=== PATIENT | female | born 1980 | race African-American/Black ===

== ENCOUNTER 2016-06-27 05:30 | Emergency (ER) | payer MEDICAID ==
[~2016-06-27] VITALS: Ht 157.5 cm; Wt 66.0 kg
[2016-06-27] MEDS ORDERED: ACETAMINOPHEN 325MG TABLET PO STA (06:22)
[2016-06-27 06:35] LABS: CLARITY URINE CLEAR (CLEAR); COLOR URINE YELLOW (YELLOW); GLUCOSE URINE NEGATIVE (NEGATIVE); KETONES URINE NEGATIVE (NEGATIVE); LEUKOCYTE ESTERASE URINE NEGATIVE (NEGATIVE); NITRITE URINE NEGATIVE (NEGATIVE); OCCULT BLOOD URINE 2+ (NEGATIVE); PH URINE 7.5 (4.5-8.0); PROTEIN URINE NEGATIVE (NEGATIVE); SPECIFIC GRAVITY URINE 1.006 (1.005-1.030); UROBILINOGEN URINE 0.2 E.U./dL (0.2-1.0)
[2016-06-27 06:36] LABS: BACTERIA URINE NONE SEEN; CALCIUM PHOSPHATE CRYSTALS UR NONE SEEN /lpf; SQUAMOUS EPITHELIAL CELL URINE NONE SEEN /lpf (RARE/1+); WAXY CASTS URINE NONE SEEN /lpf; WBC URINE NONE SEEN /hpf (0-2); YEAST URINE NONE SEEN
[2016-06-27 06:40] LABS: BASOPHILS % 0.5 % (0.0-2.0); EOSINOPHILS % 3.4 % (0.0-5.0); HEMATOCRIT. 32.5 % (36.0-48.0); HEMOGLOBIN. 11.1 g/dL (12.0-16.0); LYMPHOCYTES % 26.9 % (20.0-50.0); MEAN CORPUSCULAR HEMOGLOBIN 28.1 pg (28.0-32.0); MEAN CORPUSCULAR HGB CONC 34.3 g/dL (31.0-37.0); NEUTROPHILS % 60.2 % (40.0-76.0); PLATELET 266 x1000/uL (130-400); RED BLOOD CELL COUNT 3.96 mill/uL (4.2-5.4); RED CELL DISTRIBUTION WIDTH 13.1 % (11.6-14.6); WHITE BLOOD COUNT 7.4 x1000/uL (4.5-11.0)
[2016-06-27 07:03] LABS: ANION GAP 17; CARBON DIOXIDE 21 mEq/L (21-32); CHLORIDE 105 mEq/L (98-107); UREA NITROGEN BLOOD 8 mg/dL (7-21); eGFR > 60 mL/min (>60)
[2016-06-27 07:04] LABS: ALANINE AMINOTRANSFERASE 13 IU/L (13-61); ALBUMIN 3.7 g/dL (3.4-5.0); CALCIUM 9.2 mg/dL (8.5-10.1); INDEX HEMOLYSI 1 (1-3); INDEX ICTERIC 1 (1-4); INDEX LIPEMIC 1 (1-3)
[2016-06-27 07:14] LABS: B-HCG QUANTITATIVE 10236 mIU/mL (<3)
[2016-06-27 07:43] VITALS: BP 114/72
== END 2016-06-27 10:09 | disposition home or self-care (01) ==
LOC: ER 05:31
DX: O02.1 Missed abortion (principal)
CPT/HCPCS: 36415; 76801; 76817; 80053; 81001; 81025; 84702; 85025; 86850; 86900; 86901; 99285; Z7610

== ENCOUNTER 2018-08-24 11:20 | Inpatient (IN) | payer MEDICAID ==
[~2018-08-24] VITALS: Ht 175.3 cm; Wt 68.5 kg
[2018-08-24] MEDS ORDERED: SODIUM CHLORIDE 0.9% 1,000 ML IV ONE ×2 (11:33→11:51)
[2018-08-24 11:55] LABS: BASOPHILS % 1.1 % (0.0-2.0); EOSINOPHILS % 4.4 % (0.0-5.0); HEMATOCRIT. 33.6 % (36.0-48.0); HEMOGLOBIN. 11.7 g/dL (12.0-16.0); LYMPHOCYTES % 40.8 % (20.0-50.0); MEAN CORPUSCULAR HEMOGLOBIN 29.1 pg (28.0-32.0); MEAN CORPUSCULAR VOLUME 83.9 fL (81.0-99.0); MEAN PLATELET VOLUME 8.1 fl (7.4-10.4); MONOCYTES % 9.9 % (2.0-8.0); NEUTROPHILS % 43.8 % (40.0-76.0); PLATELET 285 x1000/uL (130-400); RED BLOOD CELL COUNT 4.01 mill/uL (4.2-5.4); RED CELL DISTRIBUTION WIDTH 12.8 % (11.6-14.6)
[2018-08-24 11:57] LABS: CHLORIDE 108 mEq/L (98-107)
[2018-08-24 12:07] LABS: HCG SCREEN NEGATIVE
[2018-08-24 12:48] LABS: CLARITY URINE CLEAR (CLEAR); COLOR URINE YELLOW (YELLOW); KETONES URINE NEGATIVE (NEGATIVE); LEUKOCYTE ESTERASE URINE NEGATIVE (NEGATIVE); NITRITE URINE NEGATIVE (NEGATIVE); OCCULT BLOOD URINE TRACE (NEGATIVE); PH URINE 7.5 (4.5-8.0); PROTEIN URINE NEGATIVE (NEGATIVE); SPECIFIC GRAVITY URINE 1.009 (1.005-1.030); UROBILINOGEN URINE 0.2 E.U./dL (0.2-1.0)
[2018-08-24] MEDS ORDERED: ONDANSETRON HCL 4MG/2ML INJ IV PRN (13:30)
[2018-08-24] MEDS: ACETAMINOPHEN 325MG TABLET PO PRN ×2 (14:36→19:23)
[2018-08-24 17:00] VITALS: BP 106/65
[2018-08-24 20:00] VITALS: BP 111/68
[2018-08-25] VITALS: BP 118/66
[2018-08-25] MEDS: ACETAMINOPHEN 325MG TABLET PO PRN (00:34)
[2018-08-25 04:00] VITALS: BP 117/63
[2018-08-25 07:27] LABS: BASOPHILS % 0.8 % (0.0-2.0); EOSINOPHILS % 4.2 % (0.0-5.0); HEMATOCRIT. 32.9 % (36.0-48.0); HEMOGLOBIN. 11.2 g/dL (12.0-16.0); LYMPHOCYTES % 48.2 % (20.0-50.0); MEAN CORPUSCULAR HEMOGLOBIN 28.7 pg (28.0-32.0); MEAN CORPUSCULAR VOLUME 84.4 fL (81.0-99.0); MEAN PLATELET VOLUME 8.3 fl (7.4-10.4); MONOCYTES % 8.7 % (2.0-8.0); NEUTROPHILS % 38.1 % (40.0-76.0); PLATELET 296 x1000/uL (130-400)
[2018-08-25 08:00] VITALS: BP 116/73
[2018-08-25 09:34] LABS: CHLORIDE 108 mEq/L (98-107)
[2018-08-25 12:00] VITALS: BP 114/69
[2018-08-25 15:26] VITALS: BP 114/67
[2018-08-25 16:00] VITALS: BP 112/61
[2018-08-25] MEDS ORDERED: MIRTAZAPINE 15MG TABLET PO SCH (21:00)
== END 2018-08-25 16:15 | disposition home health service (06) | DRG 351 ==
LOC: ER 11:20 → 7WST 12:42 → EDBEDREQ 13:12 → ENRESERV 14:57
PROVIDERS: ADMIT Internal Medicine; ATTEND Internal Medicine
DX: M79.18 Myalgia, other site (principal); E87.8 Other disorders of electrolyte and fluid balance, not elsewhere classified; D64.9 Anemia, unspecified; I10 Essential (primary) hypertension; F41.9 Anxiety disorder, unspecified; N39.0 Urinary tract infection, site not specified; R53.1 Weakness
CPT/HCPCS: 36415; 70551; 71045; 72141; 80048; 81025; 83880; 84484; 84703; 93005; 96360; 96361; 97161; 97165; 99285; J7030